=== PATIENT | female | born 1980 | race Hispanic/Latino ===

== ENCOUNTER 2017-02-10 09:29 | Day surgery (SDC) | payer BC, OTHER ==
[2017-02-09 14:59] VITALS: BMI 18.5
[2017-02-10] MEDS ORDERED: ceFAZolin IV 1 gm in Dextrose 1 GM/50 ML BAG IVPB ONE (09:43)
[2017-02-10] MEDS ORDERED: ceFAZolin IV 1 gm in Dextrose 0 GM/0 ML BAG IVPB ONE (09:43)
[2017-02-10 10:28] VITALS: RESP 18
[2017-02-10] MEDS ORDERED: Midazolam 2 MG/2 ML VIAL ONE (10:29)
[2017-02-10] MEDS ORDERED: Rocuronium 10 mg/ml (5 ml) ONE (10:29)
[2017-02-10] MEDS ORDERED: Propofol 10 mg/ml Inj (20 ML) ONE (10:29)
[2017-02-10] MEDS ORDERED: Lidocaine 4% (Laryng-O-Jet) Kit MM ONE (10:30)
[2017-02-10] MEDS ORDERED: Succinylcholine 200 mg/10 ml Inj IV ONE (10:30)
[2017-02-10 10:31] LABS: HEMATOCRIT 36.1 % (34.0-47.0); MEAN CELL VOLUME 92.2 fl (81.0-99.0); MEAN CORPUSCULAR HEMOGLOBIN 31.3 pg (27.0-31.0); MEAN CORPUSCULAR HGB CONC 33.9 g/dL (33.0-37.0); RED CELL DISTRIBUTION WIDTH 13.4 % (11.5-14.5); WHITE BLOOD COUNT 5.2 K/uL (4.8-10.8)
[2017-02-10] MEDS ORDERED: Lactated Ringer's 1,000 ML IV ONE ×2 (11:20)
[2017-02-10] MEDS ORDERED: Dexamethasone 4 mg/1 ml ONE (11:48)
[2017-02-10] MEDS: Bupivacaine 0.5% Inj(30mL) ONE ×2 (11:50→12:25)
[2017-02-10] MEDS ORDERED: Desflurane Inhalation Anesthetic Liq (240 ml) ONE (12:09)
[2017-02-10] MEDS ORDERED: Neostigmine Methylsulfate 3mg/3ml Syringe IV ONE (12:22)
[2017-02-10] MEDS ORDERED: Lactated Ringer's 1,000 ML IV SCH (12:45)
[2017-02-10] MEDS: HYDROmorphone 0.5 mg/0.5 ml ISec IVP PRN ×4 (12:55→13:38)
[2017-02-10] MEDS ORDERED: Oxycodone/Acetaminophen 5/325 mg Tab PO PRN (13:09)
[2017-02-10 19:43] VITALS: BP 108/64; PULSE 83; TEMP 98.3; O2SAT 98
--- NOTE | 2017-02-13 14:29 | PCM.OP ---
Operative Report - Operative Report Date of Surgery/Procedure: 02/10/17 Time of Surgery/Procedure: 10:00 Surgeon: Dr. Angelo Loyd Waters[place] Program Manager: Dr. Bryon Paz Anesthesia/Sedation: general/Dr. Keller Pre-Operative Diagnosis: abdominal pain and endometriosis Post-Operative Diagnosis: incarcerated umbilical hernia Indication for Surgery: incarcerated umbilical hernia with inability to safely place the intitial umbilical port for the HAND TRUCKER procedure Operative Findings: incarcerated umbilical hernia Procedure/Operation Description: 1-Repair incarcerated umbilical hernia. 2- Omentectomy. Brief History: Dr. Brandi bassett brought the patient to the operating room and after intitating the procedure with an incision into the umbilicus he noticed an incarcerated umbilical hernia with omentum. Intraoperative general surgery consultation was requested. Description of the procedure: The patient had already been brought to the operating room and after incision the above incarcerated um,bilical hernia was noted and tocar could not be safely introduced (separate dictation Dr. Paz). With scissors and electrocautery the omentum whihc was incarcerated into the area of the umbilical incision was delicately lysed. A portion of the omentum which was obstructing the umbilicus at the level of the midline incision was excided and sent to aptholgy aas a separate specimen. The hernia was dissected and an 8 mm robotic port was placerd with ease. The operation was then turned over to Dr. Paz (separate dictation Dr. Paz). Once he completed the robotic procedure the umbilical hernia was repaired with mutiple interrupted 3-0PDS sutures. The skin was closed with 4-0 monocryl. The patient tolerated this portion of the procedure and the remainder of the closure was perfomred by Dr. Paz ( separate dictaion Dr. Paz). Estimated Blood Loss: 5 cc Complications: none Discharge & Condition: stable
--- NOTE | 2017-02-22 13:47 | OP ---
PROCEDURE DATE: 02/10/2017 PREOPERATIVE DIAGNOSES: Dysmenorrhea, dyspareunia, rule out endometriosis. 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 PROCEDURE: Cystoscopy with bilateral ureteral catheterization and injection of dye, hysteroscopy, dilation and curettage, robotic excision of endometriosis and ablation of endometriosis. SURGEON: Bryon Paz MD. LEATHER GRADER: Assisted by Angelo Loyd MD. TYPE OF ANESTHESIA: General endotracheal. ESTIMATED BLOOD LOSS: Minimal. DESCRIPTION OF PROCEDURE: The patient was taken to the OR after signing her consent. She was placed in the dorsal lithotomy position. All areas prone to pressure were padded. A time-out was taken according to hospital policy. At this point, under direct visualization, a cystoscope was inserted into the bladder. Both ureters were visualized, ureteral ostia appeared to be in the anatomical position. The bladder was free of lesions, masses, or tumors. At this point, under direct visualization, the left ureter was catheterized with an open-ended catheter all the way to the distal ureter and 5 mL of IC-Green were injected. Attention was then on the right side where similarly the ureter was catheterized all the way to the distal ureter and 5 mL of IC-Green were then injected. At this point, the instruments were removed and a Martino was placed into the bladder. The speculum was placed into the vagina, the anterior lip of the cervix was grasped, and a hysteroscope was inserted into the uterine cavity. The patient had a history of endometritis and therefore, there was a concern of possible recurrent endometritis. The cavity appeared to be normal without any lesions. The hysteroscope was removed and endometrial biopsy was taken in 4 quadrants. At this point, after this was done, attention was on the abdomen where an open laparoscopy was performed. The peritoneum was entered in a blunt fashion and a cannula was placed after insufflating the abdomen, under direct visualization. Left upper quadrant and right upper quadrant trocars were inserted under direct visualization. The da Bonny robot was docked. The upper abdomen was examined and appeared to be normal. The pelvis appeared to have areas of erythema, suspicious of endometriosis. The peritoneum in those areas was carefully destroyed utilizing energy. The cul-de-sac was addressed in the same way. There was an area that was suspicious for endometriosis also in the posterior cul-de-sac and a sampling of that was taken utilizing unipolar scissors and a grasper. At this point, after having ablated a number of areas in the posterior cul-de-sac and bilaterally in both sides with great care to avoid the ureters by utilizing fluorescent technology, the pelvis was irrigated and it was checked for hemostasis that appeared to be excellent. The da Bonny robot was removed. The abdomen desufflated. All the incisions were closed with 0 PDS for the fascia and 4-0 Monocryl for the skin. Bryon Paz MD
== END 2017-02-10 20:18 | disposition home or self-care (01) ==
LOC: H.OPSURG 09:29
PROVIDERS: ATTEND Obstetrics & Gynecology Reproductive Endocrinology
DX: K42.0 Umbilical hernia with obstruction, without gangrene (principal)
CPT/HCPCS: 36415; 49587; 58100; 58563; 85027; 86850; 86900; 88305; C1729; J0330; J0690; J1100; J1170; J2001; J2250; J2405; J2704; J2710; J2765; J3010; J7030; J7040; J7120

== ENCOUNTER 2017-05-23 11:40 | Day surgery (SDC) | payer BC ==
[2017-05-20 13:50] VITALS: BMI 17.4
[2017-05-23 12:49] VITALS: RESP 18; O2SAT 100
[2017-05-23 12:54] LABS: HEMOGLOBIN 12.2 g/dL (12.0-16.0); MEAN CELL VOLUME 92.3 fl (81.0-99.0); MEAN CORPUSCULAR HEMOGLOBIN 30.6 pg (27.0-31.0); MEAN CORPUSCULAR HGB CONC 33.2 g/dL (33.0-37.0); RBC 3.98 Mil/uL (3.80-5.20); RED CELL DISTRIBUTION WIDTH 13.6 % (11.5-14.5); WHITE BLOOD COUNT 8.6 K/uL (4.8-10.8)
[2017-05-23] MEDS ORDERED: Silver Nitrate Topical - Stick ONE (13:45)
[2017-05-23] MEDS ORDERED: Propofol 10 mg/ml Inj (20 ML) ONE (13:57)
[2017-05-23] MEDS ORDERED: Midazolam 2 MG/2 ML VIAL ONE (13:57)
[2017-05-23] MEDS ORDERED: Succinylcholine 200 mg/10 ml Inj IV ONE (13:57)
[2017-05-23] MEDS ORDERED: ePHEDrine 50 mg/ml Inj ONE (13:57)
[2017-05-23] MEDS ORDERED: Lidocaine 4% (Laryng-O-Jet) Kit MM ONE (13:58)
[2017-05-23] MEDS ORDERED: Desflurane Inhalation Anesthetic Liq (240 ml) ONE (14:56)
[2017-05-23] MEDS ORDERED: Dexamethasone 4 mg/1 ml ONE (15:00)
[2017-05-23] MEDS ORDERED: Lactated Ringer's 1,000 ML IV ONE ×2 (15:00→16:20)
[2017-05-23] MEDS ORDERED: HYDROmorphone 0.5 mg/0.5 ml ISec IVP PRN (15:28)
[2017-05-23 16:07] LABS: BASO % 0.2 % (0.0-2.0); EOS # 0.2 K/uL (0.0-0.7); EOS % 1.8 % (0.0-4.0); HEMOGLOBIN 11.7 g/dL (12.0-16.0); LYMPH # 4.3 K/uL (1.0-4.3); LYMPH % 39.4 % (20.0-40.0); MEAN CELL VOLUME 92.3 fl (81.0-99.0); MEAN CORPUSCULAR HEMOGLOBIN 30.3 pg (27.0-31.0); MEAN CORPUSCULAR HGB CONC 32.9 g/dL (33.0-37.0); MEAN PLATELET VOLUME 7.2 fl (7.2-11.7); MONO # 0.9 K/uL (0.0-0.8); MONO % 8.5 % (0.0-10.0); NEUT # 5.5 K/uL (1.8-7.0); NEUT % 50.1 % (50.0-75.0); NRBC % 0.2 % (0.0-0.0); RBC 3.86 Mil/uL (3.80-5.20); RED CELL DISTRIBUTION WIDTH 13.8 % (11.5-14.5)
[2017-05-23 17:14] VITALS: BP 126/78; PULSE 82; TEMP 97.6
--- NOTE | 2017-05-24 08:48 | OP ---
PROCEDURE DATE: 05/23/2017 PREOPERATIVE DIAGNOSIS: Missed . POSTOPERATIVE DIAGNOSIS: Missed . PROCEDURE: Suction D and C. SURGEON: Bryon Paz MD TYPE OF ANESTHESIA: General endotracheal. ESTIMATED BLOOD LOSS: 100 mL. COMPLICATIONS: None. DESCRIPTION OF PROCEDURE: After adequate anesthesia was obtained, the patient was placed in dorsal lithotomy position with extreme care not to hyperextend or hyperflex her hips. The bladder was emptied using a red rubber catheter, exam under anesthesia was performed revealing a 7 weeks' size uterus. At this point, a speculum was placed in the vagina. The anterior lip of the cervix was grasped. The cervix was gently dilated. It was measured at 7.5-8 cm. An 8-Sami curved curette was inserted into the uterine cavity. Suction was applied. Abundant products of conception were obtained. There was no necessity to perform a scrapping utilizing a sharp curette as there seemed to be no bleeding after the suctioning. At this point, the uterus was gently massaged. Tenaculum was removed. There appeared to be no bleeding. The speculum was removed, and the patient was woken up and taken to the recovery room in excellent condition. Blood loss of conceptions were sent to Pathology for microarray studies as well as maternal contamination DNA studies. Bryon Paz MD
== END 2017-05-23 17:10 | disposition home or self-care (01) ==
LOC: H.OPSURG 11:40
PROVIDERS: ATTEND Obstetrics & Gynecology Reproductive Endocrinology
DX: O02.1 Missed abortion (principal)
CPT/HCPCS: 36415; 59820; 84703; 85025; 85027; 86850; 86900; 88305; J0330; J0690; J1100; J1885; J2001; J2250; J2405; J2704; J3010; J7030; J7120